=== PATIENT | female | born 1995 | race Caucasian/White ===

== ENCOUNTER 2017-06-21 18:20 | Emergency (ER) | payer SELFPAY ==
[~2017-06-21 18:20] MED LIST: ADDERALL XR10 MG PO; BACTRIM DS TABL1 TA1 PO; CLEOCIN100 MG/SUP VG; FLAGYL PO; MACROBID100 MG PO; MOTRIN400 M1 PO; NO MEDICATIONS; REGLAN10 MG PO; SEROQUEL PO; SEROQUEL XR400 M1 PO; SYNTHROID PO; TRILEPTAL300 MG PO; VIVANCE; YASMIN 28 TABLE1 TAB PO; ZOFRAN ODT4 MG PO
[2017-06-21] MEDS ORDERED: NO MEDICATIONS (18:29)
[2017-06-25 07:20] LABS: CHLAMYDIA TRACH Not Detected (Not Detected); N GONOR Not Detected (Not Detected)
== END 2017-06-21 21:06 | disposition home or self-care (01) ==
LOC: SED 18:20
PROVIDERS: Physician Assistant
DX: N76.0 Acute vaginitis (principal); F17.200 Nicotine dependence, unspecified, uncomplicated; R19.7 Diarrhea, unspecified; F31.9 Bipolar disorder, unspecified; F90.9 Attention-deficit hyperactivity disorder, unspecified type; E07.9 Disorder of thyroid, unspecified; F17.210 Nicotine dependence, cigarettes, uncomplicated
CPT/HCPCS: 87210; 87491; 87591; 87808; 87905; 99284